=== PATIENT | female | born 1945 | race Hispanic/Latino ===

== ENCOUNTER → 2017-06-10 | Outpatient (CLI) | payer OTHER | END | disposition home or self-care (01) | LOC: OIH 11:01 | PROVIDERS: ATTEND Family Medicine | DX: M47.22 Other spondylosis with radiculopathy, cervical region (principal); I10 Essential (primary) hypertension | CPT/HCPCS: 71046; 72040 ==

== ENCOUNTER → 2018-01-26 | Outpatient (CLI) | payer OTHER | END | disposition home or self-care (01) | LOC: OIH 12:51 | PROVIDERS: ATTEND Family Medicine | DX: M47.895 Other spondylosis, thoracolumbar region (principal); I10 Essential (primary) hypertension | CPT/HCPCS: 71046 ==

== ENCOUNTER → 2018-02-24 | Outpatient (CLI) | payer OTHER | END | disposition home or self-care (01) | LOC: SHCH 11:40 | PROVIDERS: ATTEND Internal Medicine Cardiovascular Disease | DX: I10 Essential (primary) hypertension (principal) | CPT/HCPCS: 93306 ==

== ENCOUNTER → 2018-03-05 | Outpatient (CLI) | payer OTHER | END | disposition home or self-care (01) | LOC: SHCH 15:14 | PROVIDERS: ATTEND Internal Medicine Cardiovascular Disease | DX: I87.2 Venous insufficiency (chronic) (peripheral) (principal) | CPT/HCPCS: 93970 ==

== ENCOUNTER → 2018-08-13 | Outpatient (CLI) | payer OTHER ==
[~2018-08-13] VITALS: Ht 165.1 cm; Wt 114.8 kg
[~2018-08-13] MED LIST: REGADENOSON 0.4 MG/5 ML PF SYG IVP SCH
== END | disposition home or self-care (01) ==
LOC: SHCH 08:31
PROVIDERS: ATTEND Internal Medicine Cardiovascular Disease
DX: I10 Essential (primary) hypertension (principal)
CPT/HCPCS: 78452; 93017; 96374; A9500 ×2; J2785